=== PATIENT | male | born 1950 | race Caucasian/White ===

== ENCOUNTER 2017-11-05 17:49 | Inpatient (IN) | payer MEDICARE, OTHER ==
[~2017-11-05] VITALS: Ht 175.3 cm; Wt 87.2 kg
[~2017-11-05 17:49] MED LIST: ASPI-1265 PO; ATOR20TA66 PO; CLOP75TA35 PO; LISI2.5T2 PO; METO25TA6 PO; NITR0.4T48 SL
[2017-11-05] MEDS ORDERED: aspirin 81mg tab.chew PO ONE (17:55)
[2017-11-05 18:27] LABS: BASOPHILS # (AUTO) 0.1 X10'3 (0-0.2); BASOPHILS % (AUTO) 0.6 % (0-1); EOSINOPHILS # (AUTO) 0.2 X10'3 (0-0.9); EOSINOPHILS % (AUTO) 1.8 % (0-6); HEMATOCRIT 49.5 % (42.0-52.0); HEMOGLOBIN 16.4 g/dl (14.0-17.9); LYMPHOCYTES # (AUTO) 2.4 X10'3 (1.1-4.8); LYMPHOCYTES % (AUTO) 24.1 % (21-51); MEAN CORPUSCULAR HEMOGLOBIN 30.6 PG (27.0-31.0); MEAN CORPUSCULAR HGB CONC 33.2 % (33.0-36.5); MEAN PLATELET VOLUME 8.9 FL (7.4-10.4); MONOCYTES % (AUTO) 9.8 % (2-12); NEUTROPHILS # (AUTO) 6.3 X10'3 (1.8-7.7); NEUTROPHILS % (AUTO) 63.7 % (42-75); PLATELET COUNT 208 X10'3 (140-440); RED BLOOD COUNT 5.38 X10'6 (4.70-6.10); RED CELL DISTRIBUTION WIDTH 13.9 % (11.5-14.5); WHITE BLOOD COUNT 9.9 X10'3 (4.5-11.0)
[2017-11-05 18:39] LABS: PARTIAL THROMBOPLASTIN TIME 24 SECONDS (22-32); PROTHROMBIN TIME 9.9 SECONDS (9.0-12.0)
[2017-11-05 18:45] LABS: ALANINE AMINOTRANSFERASE 57 U/L (12-78); ALBUMIN 3.5 G/DL (3.4-5.0); ALBUMIN/GLOBULIN RATIO 0.9 (1.1-1.5); ALKALINE PHOSPHATASE 86 IU/L (46-116); ANION GAP 11 (8-16); ASPARTATE AMINO TRANSFERASE 23 U/L (10-37); BILIRUBIN,TOTAL 0.8 MG/DL (0.1-1.0); BLOOD UREA NITROGEN 14 MG/DL (7-18); BUN/CREATININE RATIO 12.8 (5.4-32.0); CALCIUM 9.4 MG/DL (8.5-10.1); CHLORIDE 105 MMOL/L (99-107); CREATININE 1.09 MG/DL (0.60-1.10); GLUCOSE 100 MG/DL (70-104); POTASSIUM 3.8 MMOL/L (3.5-5.1); SODIUM 141 MMOL/L (135-145); TOTAL CARBON DIOXIDE 24.7 MMOL/L (24-32); TOTAL PROTEIN 7.5 G/DL (6.4-8.2); eGFR 67 ML/MIN
[2017-11-05] MEDS ORDERED: nitroGLYCERIN 0.4mg SUBLingual tab SL PRN ×2 (19:35→22:50)
[2017-11-05 20:46] LABS: CLARITY,URINE CLEAR (Clear); COLOR,URINE YELLOW (Yellow); GLUCOSE, URINE NEGATIVE (Neg); KETONES,URINE NEGATIVE (Neg); LEUKOCYTE ESTERASE ,URINE NEGATIVE (Neg); NITRITES, URINE NEGATIVE (Neg); OCCULT BLOOD,URINE NEGATIVE (Neg); PROTEIN,URINE NEGATIVE (Neg); UROBILINOGEN,URINE 0.2 E.U/dL (0.2-1.0)
[2017-11-05 20:47] LABS: UA COLLECTION TYPE CLN CATCH MIDSTREAM
[2017-11-05] MEDS ORDERED: normal saline 1000ml 1,000 ML IV SCH (22:49)
[2017-11-05] MEDS ORDERED: diphenhydrAMINE 50 mg/ml inj IV PRN (22:50)
[2017-11-05] MEDS ORDERED: bisacodyl 10mg suppository rectal RC PRN (22:50)
[2017-11-05] MEDS ORDERED: CAFFEINE CITRATE 60 MG/3 ML injection vial IV PRN (22:50)
[2017-11-05] MEDS ORDERED: morphine 4 MG/ML inj SYRINge IV PRN ×2 (22:50)
[2017-11-05] MEDS ORDERED: HYDROmorphone inj. 0.5 MG/0.5 ML DISP.SYRIN IV PRN ×2 (22:50)
[2017-11-05] MEDS ORDERED: HYDROcodone/acetaminophen 10/325mg tab PO PRN (22:50)
[2017-11-05] MEDS ORDERED: acetaminophen 325mg tablet PO PRN ×2 (22:50)
[2017-11-05] MEDS ORDERED: mag hydrox/Alum hydrox/simeth 30ml oral suspension PO PRN (22:50)
[2017-11-05] MEDS ORDERED: acetaminophen 650mg rectal suppository RC PRN (22:50)
[2017-11-05] MEDS ORDERED: magnesium hydroxide 30ml (MOM) UD suspension PO PRN (22:50)
[2017-11-05] MEDS ORDERED: diphenhydrAMINE 25mg capsule PO PRN (22:50)
[2017-11-05] MEDS ORDERED: metoprolol tartrate 1mg/ml inj IV PRN (22:50)
[2017-11-05] MEDS ORDERED: HYDROcodone/acetaminophen 5mg/325mg tablet PO PRN (22:50)
[2017-11-05] MEDS ORDERED: metoclopramide 5 mg/ml inj IV PRN (22:50)
[2017-11-05] MEDS ORDERED: ondansetron/PF 4mg/2ml inj IV PRN (22:50)
[2017-11-05] MEDS ORDERED: regadenoson 0.4mg/5ml syringe IV ONE (22:50)
[2017-11-05] MEDS: enoxaparin 80mg/0.8ml syringe SUBCUT SCH (23:42)
[2017-11-06] VITALS (14 sets, daily range): BP systolic 115–157; BP diastolic 61–84
[2017-11-06 00:02] LABS: MAGNESIUM 1.9 MG/DL (1.5-2.4)
[2017-11-06 06:47] LABS: BASOPHILS % (AUTO) 0.3 % (0-1); EOSINOPHILS # (AUTO) 0.3 X10'3 (0-0.9); EOSINOPHILS % (AUTO) 2.6 % (0-6); HEMATOCRIT 47.1 % (42.0-52.0); HEMOGLOBIN 16.1 g/dl (14.0-17.9); LYMPHOCYTES # (AUTO) 1.9 X10'3 (1.1-4.8); LYMPHOCYTES % (AUTO) 19.8 % (21-51); MEAN CORPUSCULAR HEMOGLOBIN 31.2 PG (27.0-31.0); MEAN CORPUSCULAR HGB CONC 34.3 % (33.0-36.5); MEAN CORPUSCULAR VOLUME 91.1 FL (78-98); MEAN PLATELET VOLUME 8.8 FL (7.4-10.4); MONOCYTES # (AUTO) 0.7 X10'3 (0-0.9); MONOCYTES % (AUTO) 6.8 % (2-12); NEUTROPHILS # (AUTO) 6.9 X10'3 (1.8-7.7); NEUTROPHILS % (AUTO) 70.5 % (42-75); PLATELET COUNT 181 X10'3 (140-440); RED BLOOD COUNT 5.17 X10'6 (4.70-6.10); RED CELL DISTRIBUTION WIDTH 14.1 % (11.5-14.5); WHITE BLOOD COUNT 9.8 X10'3 (4.5-11.0)
[2017-11-06 07:03] LABS: ALANINE AMINOTRANSFERASE 48 U/L (12-78); ALBUMIN 3.1 G/DL (3.4-5.0); ALBUMIN/GLOBULIN RATIO 0.8 (1.1-1.5); ALKALINE PHOSPHATASE 81 IU/L (46-116); ANION GAP 7 (8-16); ASPARTATE AMINO TRANSFERASE 22 U/L (10-37); BILIRUBIN,TOTAL 1.1 MG/DL (0.1-1.0); BLOOD UREA NITROGEN 15 MG/DL (7-18); BUN/CREATININE RATIO 13.6 (5.4-32.0); CALCIUM 9.1 MG/DL (8.5-10.1); CHLORIDE 106 MMOL/L (99-107); GLUCOSE 100 MG/DL (70-104); POTASSIUM 4.1 MMOL/L (3.5-5.1); SODIUM 139 MMOL/L (135-145); TOTAL CARBON DIOXIDE 25.7 MMOL/L (24-32); TOTAL PROTEIN 6.9 G/DL (6.4-8.2); eGFR 67 ML/MIN
[2017-11-06] MEDS: pantoprazole 40mg Tablet.DR PO SCH (07:19)
[2017-11-06] MEDS ORDERED: PANT-47 PO (07:25)
[2017-11-06] MEDS ORDERED: METO25TA6 PO (07:29)
[2017-11-06] MEDS: docusate sod 100mg capsule PO SCH ×2 (08:00→19:33)
[2017-11-06] MEDS: enoxaparin 80mg/0.8ml syringe SUBCUT SCH (11:00)
[2017-11-06] MEDS ORDERED: regadenoson 0.4mg/5ml syringe IV ONE (11:25)
[2017-11-06] MEDS ORDERED: CAFFEINE CITRATE 60 MG/3 ML injection vial IV ONE (11:25)
[2017-11-06] MEDS ORDERED: nitroGLYCERIN 0.4mg SUBLingual tab SL ONE (11:41)
[2017-11-06] MEDS: lisinopril 2.5mg tablet PO SCH (13:35)
[2017-11-06] MEDS: aspirin 81mg tablet.DR PO SCH (13:35)
[2017-11-06] MEDS ORDERED: nitroGLYCERIN 0.4mg SUBLingual tab SL PRN (14:10)
[2017-11-06] MEDS: nitroGLYCERIN 0.4mg/hour patch TD SCH (15:51)
[2017-11-07] VITALS (12 sets, daily range): BP systolic 105–161; BP diastolic 56–81
[2017-11-07 07:18] LABS: ALANINE AMINOTRANSFERASE 45 U/L (12-78); ALBUMIN 3.2 G/DL (3.4-5.0); ALBUMIN/GLOBULIN RATIO 0.8 (1.1-1.5); ALKALINE PHOSPHATASE 85 IU/L (46-116); ANION GAP 9 (8-16); ASPARTATE AMINO TRANSFERASE 22 U/L (10-37); BILIRUBIN,TOTAL 1.1 MG/DL (0.1-1.0); BLOOD UREA NITROGEN 17 MG/DL (7-18); BUN/CREATININE RATIO 15.2 (5.4-32.0); CALCIUM 9.1 MG/DL (8.5-10.1); CHLORIDE 106 MMOL/L (99-107); CHOL/HDL RATIO 4.1 (0.00-4.99); CHOLESTEROL 161 MG/DL (0-200); CREATININE 1.12 MG/DL (0.60-1.10); GLUCOSE 99 MG/DL (70-104); HDL CHOLESTEROL 39 MG/DL (35-60); LDL CHOLESTEROL 102 MG/DL (50-100); SODIUM 138 MMOL/L (135-145); TOTAL CARBON DIOXIDE 23.5 MMOL/L (24-32); TOTAL PROTEIN 7.1 G/DL (6.4-8.2); TRIGLYCERIDES 164 MG/DL (20-135); eGFR 65 ML/MIN
[2017-11-07] MEDS: nitroGLYCERIN 0.4mg/hour patch TD SCH (08:00)
[2017-11-07] MEDS: pantoprazole 40mg Tablet.DR PO SCH ×2 (08:00→08:02)
[2017-11-07] MEDS ORDERED: lisinopril 2.5mg tablet PO SCH (08:00)
[2017-11-07] MEDS ORDERED: enoxaparin 40mg/0.4ml syringe SUBCUT SCH (08:00)
[2017-11-07] MEDS: aspirin 81mg tablet.DR PO SCH (08:02)
[2017-11-07] MEDS: docusate sod 100mg capsule PO SCH ×2 (08:02→19:42)
[2017-11-07] MEDS: metoprolol tartrate 12.5mg (1/2 tablet) PO SCH (08:03)
[2017-11-07] MEDS: lisinopril 2.5mg tablet PO SCH (08:03)
[2017-11-07] MEDS: aspirin 81mg tab.chew PO SCH (08:09)
[2017-11-07] MEDS ORDERED: iohexol 350MG/ML 100ml bottle IV ONE (12:38)
[2017-11-07] MEDS ORDERED: LIDOcaine 1% w/EPI 1:100,000 30ml vial (MDV) ONE (12:38)
[2017-11-07] MEDS ORDERED: midazolam 2 mg/2 ml injection ONE (12:38)
[2017-11-07] MEDS ORDERED: fentaNYL/PF 50MCG/1 ML 2ML syringe ONE (12:38)
[2017-11-07] MEDS ORDERED: heparin 1,000unit/ml 10ml vial 10 ML ONE (13:13)
[2017-11-07] MEDS ORDERED: ticagrelor 90mg tablet ONE (13:22)
[2017-11-07] MEDS ORDERED: iohexol 350 MG/ML 50ML vial IV ONE (13:26)
[2017-11-07] MEDS ORDERED: tirofiban 5mg in NS 100mL 100 ML IV ONE ×2 (13:33→14:07)
[2017-11-07] MEDS ORDERED: nitroGLYCERIN-Tridil 50MG/D5W 250 ML IV ONE (13:33)
[2017-11-07] MEDS ORDERED: nitroGLYCERIN-Tridil 50MG/D5W 250 ML IV PRN (14:15)
[2017-11-07] MEDS ORDERED: HYDROcodone/acetaminophen 5mg/325mg tablet PO PRN (14:35)
[2017-11-07] MEDS ORDERED: nitroGLYCERIN 0.4mg SUBLingual tab SL PRN (14:35)
[2017-11-07] MEDS ORDERED: OXAZEpam 15mg capsule PO PRN (14:35)
[2017-11-07] MEDS ORDERED: proCHLORperazine 10 MG/2 ml inj IV PRN (14:35)
[2017-11-07] MEDS ORDERED: HYDROcodone/acetaminophen 10/325mg tab PO PRN (14:35)
[2017-11-07] MEDS ORDERED: ondansetron/PF 4mg/2ml inj IV PRN (14:35)
[2017-11-07] MEDS: tirofiban 5mg in NS 100mL 100 ML IV SCH ×2 (14:45→20:26)
[2017-11-07] MEDS: normal saline 1000ml 1,000 ML IV SCH (14:46)
[2017-11-07] MEDS: ticagrelor 90mg tablet PO SCH (19:42)
[2017-11-07] MEDS ORDERED: atorvastatin 20mg tablet PO SCH ×2 (21:00)
[2017-11-08] MEDS: normal saline 1000ml 1,000 ML IV SCH ×2 (00:35→10:35)
[2017-11-08] MEDS: tirofiban 5mg in NS 100mL 100 ML IV SCH (02:09)
[2017-11-08 06:04] LABS: ALANINE AMINOTRANSFERASE 39 U/L (12-78); ALBUMIN/GLOBULIN RATIO 0.8 (1.1-1.5); ALKALINE PHOSPHATASE 78 IU/L (46-116); ANION GAP 7 (8-16); ASPARTATE AMINO TRANSFERASE 24 U/L (10-37); BILIRUBIN,TOTAL 1.4 MG/DL (0.1-1.0); BLOOD UREA NITROGEN 17 MG/DL (7-18); BUN/CREATININE RATIO 15.9 (5.4-32.0); CALCIUM 8.7 MG/DL (8.5-10.1); CHLORIDE 106 MMOL/L (99-107); CREATININE 1.07 MG/DL (0.60-1.10); GLUCOSE 102 MG/DL (70-104); POTASSIUM 4.1 MMOL/L (3.5-5.1); SODIUM 138 MMOL/L (135-145); TOTAL CARBON DIOXIDE 25.2 MMOL/L (24-32); TOTAL PROTEIN 6.7 G/DL (6.4-8.2); eGFR 69 ML/MIN
[2017-11-08 07:00] VITALS: BP 100/60
[2017-11-08] MEDS: lisinopril 2.5mg tablet PO SCH (07:41)
[2017-11-08] MEDS: ticagrelor 90mg tablet PO SCH (07:41)
[2017-11-08] MEDS: aspirin 81mg tab.chew PO SCH (07:41)
[2017-11-08] MEDS: docusate sod 100mg capsule PO SCH (07:42)
[2017-11-08] MEDS: pantoprazole 40mg Tablet.DR PO SCH (07:42)
[2017-11-08] MEDS: metoprolol tartrate 12.5mg (1/2 tablet) PO SCH (07:42)
[2017-11-08] MEDS ORDERED: isosorbide mononitrate 30mg tab.SR.24H PO SCH (08:00)
[2017-11-08 11:00] VITALS: BP 101/59
[2017-11-08] MEDS ORDERED: ISOS30TA6 PO (14:27)
[2017-11-08] MEDS ORDERED: TICA90TA PO (14:27)
[2017-11-08] MEDS ORDERED: ATOR20TA66 PO (14:27)
== END 2017-11-08 15:50 | disposition home or self-care (01) | DRG 251 ==
LOC: ER 17:49 → ED HOLD 22:49 → SUR 3N 23:59 → PCU 3S 11-07 14:05
PROVIDERS: ADMIT Family Medicine; ATTEND Internal Medicine
PROC: 3E033HZ Introduction of Radioactive Substance into Peripheral Vein, Percutaneous Approach (ICD-10-PCS; 2017-11-06)
PROC: 4A02XM4 Measurement of Cardiac Total Activity, External Approach (ICD-10-PCS; 2017-11-06)
PROC: 02703ZZ Dilation of Coronary Artery, One Artery, Percutaneous Approach (ICD-10-PCS; principal; 2017-11-07)
PROC: 4A023N7 Measurement of Cardiac Sampling and Pressure, Left Heart, Percutaneous Approach (ICD-10-PCS; 2017-11-07)
PROC: B2111ZZ Fluoroscopy of Multiple Coronary Arteries using Low Osmolar Contrast (ICD-10-PCS; 2017-11-07)
PROC: B2151ZZ Fluoroscopy of Left Heart using Low Osmolar Contrast (ICD-10-PCS; 2017-11-07)
DX: T82.855A Stenosis of coronary artery stent, initial encounter (principal); I25.110 Atherosclerotic heart disease of native coronary artery with unstable angina pectoris; K21.9 Gastro-esophageal reflux disease without esophagitis; E78.00 Pure hypercholesterolemia, unspecified; Y83.1 Surgical operation with implant of artificial internal device as the cause of abnormal reaction of the patient, or of later complication, without mention of misadventure at the time of the procedure; M54.9 Dorsalgia, unspecified; R00.1 Bradycardia, unspecified; E78.5 Hyperlipidemia, unspecified; G89.29 Other chronic pain; I11.0 Hypertensive heart disease with heart failure; I50.9 Heart failure, unspecified; I25.2 Old myocardial infarction; Z79.899 Other long term (current) drug therapy; Z79.82 Long term (current) use of aspirin; Z85.46 Personal history of malignant neoplasm of prostate; Z80.0 Family history of malignant neoplasm of digestive organs; Z82.49 Family history of ischemic heart disease and other diseases of the circulatory system; Y92.89 Other specified places as the place of occurrence of the external cause
CPT/HCPCS: 36415; 71045; 78452; 80053; 80061; 81003; 83735; 83874; 83880; 84484; 85025; 85610; 85730; 87070; 92920; 93017; 93306; 93458; 99152; 99153; 99291; 99292; A4620; A6257; A6449; A9500; C1725; C1760; C1769; J1644; J1650; J2250; J3010; J3246; J3490; J7030; Q9967

== ENCOUNTER 2019-11-21 14:21 | Emergency (ER) | payer OTHER, MEDICARE ==
[~2019-11-21] VITALS: Ht 172.7 cm; Wt 85.0 kg
[~2019-11-21 14:21] MED LIST changes: -CLOP75TA35 PO; +ISOS30TA6 PO; +PANT-47 PO; +TICA90TA PO
[2019-11-21 15:42] LABS: CLARITY,URINE CLEAR (Clear); COLOR,URINE YELLOW (Yellow); GLUCOSE, URINE NEGATIVE (Neg); KETONES,URINE NEGATIVE (Neg); LEUKOCYTE ESTERASE ,URINE NEGATIVE (Neg); NITRITES, URINE NEGATIVE (Neg); OCCULT BLOOD,URINE NEGATIVE (Neg); PROTEIN,URINE NEGATIVE (Neg)
[2019-11-21 15:44] LABS: UA COLLECTION TYPE CLN CATCH MIDSTREAM
[2019-11-21 16:55] LABS: BASOPHILS % (AUTO) 0.5 % (0-1); EOSINOPHILS % (AUTO) 0.3 % (0-6); HEMATOCRIT 49.5 % (42.0-52.0); HEMOGLOBIN 16.5 g/dl (14.0-17.9); LYMPHOCYTES # (AUTO) 1.6 X10'3 (1.1-4.8); LYMPHOCYTES % (AUTO) 15.3 % (21-51); MEAN CORPUSCULAR HEMOGLOBIN 30.9 PG (27.0-31.0); MEAN CORPUSCULAR HGB CONC 33.4 g/dL (33.0-36.5); MEAN CORPUSCULAR VOLUME 92.3 FL (78-98); MEAN PLATELET VOLUME 8.7 FL (7.4-10.4); MONOCYTES # (AUTO) 0.7 X10'3 (0-0.9); MONOCYTES % (AUTO) 6.5 % (2-12); NEUTROPHILS # (AUTO) 8.1 X10'3 (1.8-7.7); NEUTROPHILS % (AUTO) 77.4 % (42-75); PLATELET COUNT 217 X10'3 (140-440); RED BLOOD COUNT 5.36 X10'6 (4.70-6.10); RED CELL DISTRIBUTION WIDTH 13.6 % (11.5-14.5); WHITE BLOOD COUNT 10.5 X10'3 (4.5-11.0)
[2019-11-21 17:05] LABS: ALANINE AMINOTRANSFERASE 35 U/L (12-78); ALBUMIN 3.9 G/DL (3.4-5.0); ALBUMIN/GLOBULIN RATIO 0.9 (1.1-1.5); ALKALINE PHOSPHATASE 84 IU/L (46-116); ANION GAP 9 (8-16); ASPARTATE AMINO TRANSFERASE 23 U/L (10-37); BLOOD UREA NITROGEN 14 MG/DL (7-18); BUN/CREATININE RATIO 14.1 (5.4-32.0); CALCIUM 9.4 MG/DL (8.5-10.1); CHLORIDE 107 MMOL/L (99-107); CREATININE 0.99 MG/DL (0.60-1.10); GLUCOSE 98 MG/DL (70-104); SODIUM 140 MMOL/L (135-145); TOTAL CARBON DIOXIDE 24.5 MMOL/L (24-32); TOTAL PROTEIN 8.1 G/DL (6.4-8.2); eGFR 75 ML/MIN
[2019-11-21 18:29] VITALS: BP 133/82
== END 2019-11-21 19:07 | disposition home or self-care (01) ==
LOC: ER 14:22
DX: N50.812 Left testicular pain (principal); R10.9 Unspecified abdominal pain; I50.9 Heart failure, unspecified; E78.00 Pure hypercholesterolemia, unspecified; I25.2 Old myocardial infarction; K21.9 Gastro-esophageal reflux disease without esophagitis; Z98.890 Other specified postprocedural states; Z79.82 Long term (current) use of aspirin; Z79.899 Other long term (current) drug therapy
CPT/HCPCS: 36415; 74176; 76870; 80053; 81003; 85025; 93976; 99285